=== PATIENT | male | born 1950 | race African-American/Black ===

== ENCOUNTER 2017-07-13 20:16 | Observation (INO) | payer MEDICARE, OTHER ==
[~2017-07-13] VITALS: Ht 175.3 cm; Wt 59.0 kg
[~2017-07-13 20:16] MED LIST: EYE
[2017-07-13 20:50] VITALS: BP 133/89; PULSE 89; RESP 14; TEMP 97.9; O2SAT 99
--- NOTE | 2017-07-13 20:52 | PD ---
HPI Chief Complaint: Chest pain Time Seen by Provider: 20:48 Travel History International Travel<30 days: No Contact w/Intl Traveler<30days: No Traveled to known affect area: No History of Present Illness HPI 67-year-old male with history of hypertension, chronic kidney disease, presents via EMS for evaluation of chest pain. Symptoms started 2 hours prior to examination. Reports that he was walking briskly across the road when he develops a substernal chest squeezing pressure, frontal headache, some jaw discomfort, some shortness of breath. He received 324 mg of aspirin and one sublingual nitroglycerin by EMS and his chest pain and jaw tightness resolved. He still has a mild frontal pulsating headache. He has never had this sort of discomfort before. Denies any known history of coronary artery disease. He does not recall if he is ever had a stress test. He denies cough, congestion, abdominal pain, nausea or vomiting, lower extremity edema, recent travel, recent surgery. He has no other complaints at this time. [facility] Past Medical History Cardiovascular Problems: Yes (htn) Diminished Hearing: Yes GERD: Yes Glaucoma: Yes Hypertension: Yes Immunizations Current: Yes Ulcer: Yes Past Surgical History Abdominal Surgery: Yes (REPAIRED PERFORATED ULCER ) Social History Alcohol Use: Yes ("FEW BEERS/DAY") Tobacco Use: Yes (APPROX 1/3 PPD) Substance Use: No Allergies-Medications (Allergen,Severity, Reaction): Coded Allergies: No Known Allergies (Verified Allergy, Unknown, 07/13/17) Reported Meds & Prescriptions Reported Meds & Active Scripts Active No Active Prescriptions or Reported Medications Review of Systems Except as stated in HPI: all other systems reviewed are Neg Physical Exam Narrative GENERAL: Pleasant well-developed well-nourished male in no acute distress sitting on hospital bed. SKIN: Warm and dry. HEAD: Atraumatic. Normocephalic. EYES: Pupils equal and round. No scleral icterus. No injection or drainage. ENT: No nasal bleeding or discharge. Mucous membranes pink and moist. NECK: Trachea midline. No JVD. CARDIOVASCULAR: Regular rate and rhythm. No murmur appreciated. RESPIRATORY: No accessory muscle use. Clear to auscultation. Breath sounds equal bilaterally. GASTROINTESTINAL: Abdomen soft, non-tender, nondistended. Hepatic and splenic margins not palpable. MUSCULOSKELETAL: No obvious deformities. No clubbing. No cyanosis. No edema. NEUROLOGICAL: Awake and alert. No obvious cranial nerve deficits. Motor grossly within normal limits. Normal speech. PSYCHIATRIC: Appropriate mood and affect; insight and judgment normal. Data Data Last Documented VS Vital Signs Date Time Temp Pulse Resp B/P (MAP) Pulse Ox O2 Delivery O2 Flow Rate FiO2 07/13/17 20:50 97.9 89 14 133/89 (104) 99 Orders Orders Electrocardiogram (07/13/17 20:50) Basic Metabolic Panel (Bmp) (07/13/17 20:50) Ckmb (Isoenzyme) Profile (07/13/17 20:50) Complete Blood Count With Diff (07/13/17 20:50) Magnesium (Mg) (07/13/17 20:50) Prothrombin Time / Inr (Pt) (07/13/17 20:50) Act Partial Throm Time (Ptt) (07/13/17 20:50) Troponin I (07/13/17 20:50) Ecg Monitoring (07/13/17 20:50) Bilateral Bp Monitoring (07/13/17 20:50) Iv Access Insert/Monitor (07/13/17 20:50) Oximetry (07/13/17 20:50) Oxygen Administration (07/13/17 20:50) Sodium Chloride 0.9% Flush (Ns Flush) (07/13/17 21:00) Chest, Pa & Lat (07/13/17 20:50) Ct Brain W/O Iv Contrast(Rout) (07/13/17 ) Ankle, Complete ([id number]) (07/13/17 ) Admit Order (Ed Use Only) (07/13/17:28) Activity Bed Rest With Brp (07/13/17 22:28) Vital Signs (Adult) Q4H (07/13/17:28) Cardiac Rhythm .As Directed (07/13/17:) Notify Dr: Other .PRN (07/13/17:) Notify Parameters (07/13/17:) Resp Oxygen Nasal Cannula (07/13/17 ) Ckmb (Isoenzyme) Profile (07/14/17 00:00) Ckmb (Isoenzyme) Profile (07/14/17 03:00) Troponin I (07/14/17 00:00) Troponin I (07/14/17 03:00) Electrocardiogram (07/14/17 00:00) Electrocardiogram (07/14/17 03:00) ^ Obtain (07/13/17 22:28) Sodium Chloride 0.9% Flush (Ns Flush) (07/13/17 22:30) Sodium Chloride 0.9% Flush (Ns Flush) (07/14/17 09:00) Quality Control Tech Raw Materials / Telemetry LACIE.Q8H (07/13/17 22:28) Npo After Midnight W/ Po Meds (07/14/17 Breakfast) Labs Laboratory Tests Test 07/13/17 21:00 White Blood Count 9.2 TH/MM3 Red Blood Count 4.29 MIL/MM3 Hemoglobin 13.0 GM/DL Hematocrit 39.6 % Mean Corpuscular Volume 92.4 FL Mean Corpuscular Hemoglobin 30.3 PG Mean Corpuscular Hemoglobin Concent 32.8 % Red Cell Distribution Width 14.7 % Platelet Count 182 TH/MM3 Mean Platelet Volume 8.6 FL Neutrophils (%) (Auto) 73.9 % Lymphocytes (%) (Auto) 16.6 % Monocytes (%) (Auto) 7.1 % Eosinophils (%) (Auto) 2.0 % Basophils (%) (Auto) 0.4 % Neutrophils # (Auto) 6.8 TH/MM3 Lymphocytes # (Auto) 1.5 TH/MM3 Monocytes # (Auto) 0.7 TH/MM3 Eosinophils # (Auto) 0.2 TH/MM3 Basophils # (Auto) 0.0 TH/MM3 CBC Comment DIFF FINAL Differential Comment Prothrombin Time 10.9 SEC Prothromb Time International Ratio 1.1 RATIO Activated Partial Thromboplast Time 23.6 SEC Blood Urea Nitrogen 22 MG/DL Creatinine 1.77 MG/DL Random Glucose 85 MG/DL Calcium Level 9.2 MG/DL Magnesium Level 2.1 MG/DL Sodium Level 145 MEQ/L Potassium Level 4.5 MEQ/L Chloride Level 115 MEQ/L Carbon Dioxide Level 21.0 MEQ/L Anion Gap 9 MEQ/L Estimat Glomerular Filtration Rate 46 ML/MIN Total Creatine Kinase 98 U/L Troponin I LESS THAN 0.02 NG/ML MDM Medical Decision Making Medical Screen Exam Complete: Yes Emergency Medical Condition: Yes Medical Record Reviewed: Yes Differential Diagnosis Angina, acute coronary syndrome, aortic dissection, pneumothorax, hemothorax, pericarditis, myocarditis Narrative Course The patient was placed on ECG monitoring pulse oximetry. A 12-lead EKG was obtained. Lab work, chest x-ray, CT the brain ordered. Patient is currently chest pain-free. EKG reveals sinus rhythm with no acute ischemic changes. Ankle x-ray was added on as the patient reports that he twisted his left ankle while walking. He has lateral left ankle tenderness to palpation. X-ray reveals benign periosteal reaction with no acute fracture. Chest x-ray is normal. Initial lab work is reassuring. At this point time the plan is to admit the patient into the chest pain center for serial cardiac enzymes and rule out purposes. He is agreeable. Diagnosis Primary Impression: Chest pain Admitting Information Admitting Physician Requests: Observation Scripts No Active Prescriptions or Reported Meds Rich Wilkinson July 13, 2017 20:52
[2017-07-13] MEDS ORDERED: SODIUM CHLORIDE 0.9% FLUSH 10 ML FLUSH IVF PRN (21:00)
--- NOTE | 2017-07-13 21:25 | RADRPT ---
EXAM DATE/TIME: 07/13/2017 21:15 [facility] COMPARISON: No previous studies available for comparison. INDICATIONS : Chest pain MEDICAL HISTORY : Cardiovascular disease. Hypertension. SURGICAL HISTORY : None. ENCOUNTER: Initial ACUITY: 1 day PAIN SCORE: 10/10 LOCATION: Bilateral chest FINDINGS: PA and lateral views of the chest demonstrates hyperinflation which can be seen with CO PD. No infiltrates are seen. Heart is normal in size. The mediastinal contours are unremarkable. O sseous structures are intact. Multiple bridging osteophytes thoracic spine. CONCLUSION: Hyperinflation which can be seen with COPD. No acute cardiopulmonary disease an d no evidence for an infiltrate. Dangelo Cavanaugh MD on July 13, 2017 at 21:21 Board Certified Radiologist. This report was verified electronically.
--- NOTE | 2017-07-13 21:28 | RADRPT ---
EXAM DATE/TIME: 07/13/2017 21:10 [facility] COMPARISON: No previous studies available for comparison. INDICATIONS : Ankle pain MEDICAL HISTORY : Cardiovascular disease. Hypertension. SURGICAL HISTORY : None. ENCOUNTER: Initial ACUITY: 1 day PAIN SCORE: 10/10 LOCATION: Left ankle, lateral FINDINGS: Three view exam was performed of the left ankle. The bony structures are in normal alignment. No ev idence of fracture, dislocation, or soft tissue swelling. There is periosteal reaction distal tibia and fibula. The ankle mortise is intact. No radiopaque foreign bodies are seen. Bony mineralization is normal. CONCLUSION: Benign periosteal reaction distal tibia and fibula. No fracture. Dangelo Cavanaugh MD on July 13, 2017 at 21:23 Board Certified Radiologist. This report was verified electronically.
[2017-07-13 21:34] LABS: AUTOMATED NEUTROPHIL # 6.8 TH/MM3 (1.8-7.7); BASOPHIL % 0.4 % (0.0-2.0); EOSINOPHIL # 0.2 TH/MM3 (0-0.4); HEMATOCRIT 39.6 % (39.0-51.0); LYMPH % 16.6 % (9.0-44.0); LYMPHOCYTE # 1.5 TH/MM3 (1.0-4.8); MEAN CELL VOLUME 92.4 FL (80.0-100.0); MEAN CORPUSCULAR HEMOGLOBIN 30.3 PG (27.0-34.0); MEAN CORPUSCULAR HGB CONC 32.8 % (32.0-36.0); MEAN PLATELET VOLUME 8.6 FL (7.0-11.0); MONO % 7.1 % (0.0-8.0); MONOCYTE # 0.7 TH/MM3 (0-0.9); NEUT % 73.9 % (16.0-70.0); PLATELET COUNT 182 TH/MM3 (150-450); RED BLOOD COUNT 4.29 MIL/MM3 (4.50-5.90); RED CELL DISTRIBUTION WIDTH 14.7 % (11.6-17.2); WHITE BLOOD COUNT 9.2 TH/MM3 (4.0-11.0)
[2017-07-13 21:55] LABS: BLOOD UREA NITROGEN 22 MG/DL (7-18); CALCIUM 9.2 MG/DL (8.5-10.1); CHLORIDE 115 MEQ/L (98-107); CREATININE 1.77 MG/DL (0.60-1.30); GLOMERULAR FILTRATION RATE 46 ML/MIN (>89); GLUCOSE,RANDOM 85 MG/DL (74-106); MAGNESIUM 2.1 MG/DL (1.5-2.5); SODIUM (NA) 145 MEQ/L (136-145); TROPONIN I LESS THAN 0.02 NG/ML (0.02-0.05)
[2017-07-13 22:01] LABS: INTERNATIONAL NORMALIZED RATIO 1.1 RATIO; PROTHROMBIN TIME - PATIENT 10.9 SEC (9.8-11.6)
--- NOTE | 2017-07-13 22:01 | RADRPT ---
EXAM DATE/TIME: 07/13/2017 21:44 [facility] COMPARISON: CT BRAIN W/O CONTRAST, August 02, 2015, 21:50. INDICATIONS : Cephalgia RADIATION DOSE: 56.35 CTDIvol (mGy) MEDICAL HISTORY : Hypertension. Cardiovascular disease SURGICAL HISTORY : ENCOUNTER: Initial ACUITY: 1 day PAIN SCALE: 3/10 LOCATION: cranial TECHNIQUE: Multiple contiguous axial images were obtained of the head. Using automated exposure control and adj ustment of the mA and/or kV according to patient size, radiation dose was kept as low as reasonably a chievable to obtain optimal diagnostic quality images. DICOM format image data is available electro nically for review and comparison. FINDINGS: CEREBRUM: Areas of low attenuation throughout the white matter The ventricles are normal for age. No evidence of midline shift, mass lesion, hemorrhage or acute infarction. No extra-axial fluid collections are seen. POSTERIOR FOSSA: The cerebellum and brainstem are intact. The 4th ventricle is midline. The cerebellopontine angle i s unremarkable. EXTRACRANIAL: The visualized portion of the orbits is intact. SKULL: The calvaria is intact. No evidence of skull fracture. CONCLUSION: Nonspecific white matter changes. Dangelo Cavanaugh MD on July 13, 2017 at 21:57 Board Certified Radiologist. This report was verified electronically.
[2017-07-13] MEDS ORDERED: SODIUM CHLORIDE 0.9% FLUSH 10 ML FLUSH IV FLUSH PRN (22:30)
[2017-07-13 23:13] VITALS: BP 144/75; PULSE 86; RESP 16; O2SAT 100
[2017-07-14 00:49] LABS: TROPONIN I 0.02 NG/ML (0.02-0.05)
[2017-07-14 03:08] VITALS: BP 150/83
[2017-07-14 03:39] LABS: TROPONIN I 0.02 NG/ML (0.02-0.05)
[2017-07-14 03:45] VITALS: BP 152/77; PULSE 55; RESP 18; TEMP 97.5; O2SAT 100
[2017-07-14 04:08] VITALS: PULSE 53
[2017-07-14 08:00] VITALS: BP 144/81; PULSE 60; RESP 16; TEMP 96.9; O2SAT 100
[2017-07-14 08:25] VITALS: PULSE 78
[2017-07-14] MEDS ORDERED: SODIUM CHLORIDE 0.9% FLUSH 10 ML FLUSH IV FLUSH SCH (09:00)
--- NOTE | 2017-07-15 08:26 | EKG ---
Date Performed: 07/14/2017 Time Performed: 03:08:57 PTAGE: 67 years EKG: SINUS BRADYCARDIA WITH SINUS ARRHYTHMIA SEPTAL MYOCARDIAL INFARCTION ABNORMAL ECG PREVIOUS TRACING : 07/14/2017 00.13 DOCTOR: Rosa Cortes Interpretating Date/Time 07/15/2017 08:25:09
--- NOTE | 2017-07-15 08:29 | EKG ---
Date Performed: 07/14/2017 Time Performed: 00:13:11 PTAGE: 67 years EKG: Sinus rhythm POSSIBLE LEFT ATRIAL ENLARGEMENT MARKED LEFT AXIS DEVIATION SEPTAL MYOCARDIAL INFARCTION ABNORMAL EC G PREVIOUS TRACING : 07/13/2017 20.59 DOCTOR: Rosa Cortes Interpretating Date/Time 07/15/2017 08:27:30
--- NOTE | 2017-07-15 08:35 | EKG ---
Date Performed: 07/13/2017 Time Performed: 20:59:54 PTAGE: 67 years EKG: Sinus rhythm POSSIBLE LEFT ATRIAL ENLARGEMENT MARKED LEFT AXIS DEVIATION SEPTAL MYOCARDIAL INFARCTION ABNORMAL EC G NO PREVIOUS TRACING DOCTOR: Rosa Cortes Interpretating Date/Time 07/15/2017 08:32:22
== END 2017-07-14 11:17 | disposition left against medical advice (07) ==
LOC: NEPE 20:16 → NEDA 22:30 → N03B 07-14 03:16
DX: R07.9 Chest pain, unspecified (principal); R51 Headache; R06.02 Shortness of breath; I10 Essential (primary) hypertension; K21.9 Gastro-esophageal reflux disease without esophagitis; F17.210 Nicotine dependence, cigarettes, uncomplicated; S99.912A Unspecified injury of left ankle, initial encounter; Y93.01 Activity, walking, marching and hiking; I25.10 Atherosclerotic heart disease of native coronary artery without angina pectoris; R94.31 Abnormal electrocardiogram [ECG] [EKG]; R00.1 Bradycardia, unspecified
CPT/HCPCS: 70450; 71046; 73610; 80048; 82550; 83735; 84484; 85025; 85610; 85730; 93005; 99285; G0378